=== PATIENT | female | born 1995 | race Caucasian/White ===

== ENCOUNTER 2019-12-27 15:27 | Emergency (ER) | payer MEDICAID ==
[~2019-12-27] VITALS: Ht 162.6 cm; Wt 47.0 kg
[2019-12-27 15:28] VITALS: BP 120/86
[2019-12-27 16:08] LABS: CLARITY,URINE SLIGHTLY CLOUDY (Clear); COLOR,URINE YELLOW (Yellow); GLUCOSE, URINE NEGATIVE (Neg); KETONES,URINE NEGATIVE (Neg); LEUKOCYTE ESTERASE ,URINE TRACE (Neg); NITRITES, URINE NEGATIVE (Neg); OCCULT BLOOD,URINE NEGATIVE (Neg); PH,URINE 6.5 (4.8-8.0); PROTEIN,URINE 30 mg/dl (Neg); URINE HCG NEGATIVE (NEG)
[2019-12-27 16:12] LABS: UA COLLECTION TYPE CLN CATCH MIDSTREAM
[2019-12-27 16:21] LABS: BACTERIA,URINE NONE SEEN /HPF (Neg); RBC,URINE NONE SEEN /HPF (0-2)
[2019-12-27 16:22] LABS: CAL OXALATE CRYSTALS 2+ /HPF (NEGATIVE); MUCUS STRANDS FEW /LPF (Neg); SQUAMOUS EPITHELIAL CELL,UR MODERATE /LPF (FEW)
[2019-12-27] MEDS ORDERED: CefTRIAXone 250MG IM Kit w/LIDOcaine IM ONE (17:30)
[2019-12-27] MEDS ORDERED: azithromycin 250mg tablet PO ONE (17:30)
== END 2019-12-27 18:11 | disposition home or self-care (01) ==
LOC: ER 15:28
DX: R10.2 Pelvic and perineal pain (principal); R10.30 Lower abdominal pain, unspecified; R11.2 Nausea with vomiting, unspecified
CPT/HCPCS: 36415; 81001; 81025; 87077; 87088; 87186; 87210; 87491; 87591; 96372; 99283; J0696

== ENCOUNTER 2021-02-13 19:43 | Emergency (ER) | payer MEDICAID ==
[~2021-02-13] VITALS: Ht 162.6 cm; Wt 49.5 kg
[2021-02-13 20:12] VITALS: BP 119/79
[2021-02-13 20:48] LABS: CLARITY,URINE CLOUDY (Clear); COLOR,URINE YELLOW (Yellow); GLUCOSE, URINE NEGATIVE (Neg); KETONES,URINE TRACE mg/dl (Neg); LEUKOCYTE ESTERASE ,URINE SMALL (Neg); NITRITES, URINE NEGATIVE (Neg); OCCULT BLOOD,URINE LARGE (Neg); PROTEIN,URINE 30 mg/dl (Neg); URINE HCG NEGATIVE (NEG)
[2021-02-13 20:50] LABS: UA COLLECTION TYPE CLN CATCH MIDSTREAM
[2021-02-13 21:05] LABS: RBC,URINE 50-100 /HPF (0-2)
[2021-02-13 21:06] LABS: AMORPHOUS PHOSPHATES 1+; BACTERIA,URINE 2+ /HPF (Neg); MUCUS STRANDS FEW /LPF (Neg); SQUAMOUS EPITHELIAL CELL,UR FEW /LPF (FEW)
== END 2021-02-13 22:21 | disposition left against medical advice (07) ==
LOC: ER 19:44
DX: R10.9 Unspecified abdominal pain (principal); Z53.21 Procedure and treatment not carried out due to patient leaving prior to being seen by health care provider
CPT/HCPCS: 81001; 81025; 87077; 87088; 87186